=== PATIENT | female | born 1975 | race Caucasian/White ===

== ENCOUNTER 2017-03-17 00:40 | Emergency (ER) | payer BC ==
[~2017-03-17] VITALS: Ht 165.1 cm; Wt 64.0 kg
[~2017-03-17 00:40] MED LIST: MAGN84TA4; METH-480; TERB2.5T6
[2017-03-17 00:44] VITALS: Ht 165.1 cm; Wt 64.0 kg
[2017-03-17] MEDS ORDERED: KETOROLAC 30 MG INJ IM STA (01:01)
[2017-03-17] MEDS ORDERED: HYDR-906 PO (01:25)
[2017-03-17] MEDS ORDERED: AMOX500C2 PO (01:25)
--- NOTE | 2017-03-20 12:22 | ERD ---
ER Documentation Chief Complaint Chief Complaint Rt tooth pain x 2 days, some relief w/tylenol HPI Patient is a 42-year-old female presenting to the emergency department with complaints of right lower tooth pain near the molars. Pain is severe. She has had this for 1 day. Symptoms are worsening. She took Tylenol with only mild relief. No fevers, chills, or other symptoms reported currently. ROS All systems reviewed and are negative except as per history of present illness. Medications Home Meds Active Scripts Hydrocodone/Acetaminophen ([place] 5-325 Tablet) 1 Each Tablet, 1 TAB PO Q6H Y for PAIN, #10 TAB Prov:POP NICOLE PA-C 03/17/17 Amoxicillin* (Amoxicillin*) 500 Mg Cap, 500 MG PO TID for 7 Days, #21 CAP Prov:POP NICOLE PA-C 03/17/17 Reported Medications Terbutaline Sulfate (Brethine) 2.5 Mg Tablet 02/23/10 Magnesium (Mag-Tab Sr) 84 Mg Tablet.sa 02/23/10 Methyldopa* (Aldomet*) 500 Mg Tab 02/23/10 [None] No Conflict Check 11/18/09 Allergies Allergies: Coded Allergies: No Known Allergy (Verified , 03/17/17) PMhx/Soc History of Surgery: Yes (C SECTION) Anesthesia Reaction: No Hx Neurological Disorder: No Hx Respiratory Disorders: No Hx Cardiac Disorders: Yes (MITRAL VALVE PROLAPSE) Hx Psychiatric Problems: No Hx Miscellaneous Medical Probl: No Hx Alcohol Use: No Hx Substance Use: No Hx Tobacco Use: No Smoking Status: Never smoker Physical Exam Vitals Vital Signs Date Time Temp Pulse Resp B/P Pulse Ox O2 Delivery O2 Flow Rate FiO2 03/17/17 00:44 99.3 98 18 165/100 100 Physical Exam Const: Nontoxic, well-appearing female in no acute distress. Head: Atraumatic Eyes: Normal Conjunctiva ENT: Normal External Ears, Nose and Mouth. Poor dentition. Multiple dental caries. Broken tooth noted to the right lower molar. Surrounding gingivitis. Ext: No cyanosis, or edema Neur: Awake and alert Psych: Normal Mood and Affect Results 24 hrs Current Medications Medications (Trade) Dose Ordered Sig/Viral Route PRN Reason Start Time Stop Time Status Last Admin Dose Admin Ketorolac Tromethamine (Toradol) 30 mg ONCE STAT IM 03/17/17 01:01 03/17/17 01:03 DC 03/17/17 01:17 Procedures/MDM 42-year-old female presents to the emergency department for toothache. Patient is treated in the department with IM Toradol and she is feeling improved prior to discharge. She was stable with a prescription for amoxicillin as antibiotic prophylaxis. She is also given a prescription for pain medication. She was stable for discharge. No evidence of life-threatening pathology at time of discharge. Pt/family in agreement with discharge plan/diagnosis. Pt/family advised to return immediately with any new or worsening symptoms. Follow-up with primary care physician within the next 1-2 days. Disclaimer: Inadvertent spelling and grammatical errors are likely due to EHR/ dictation software use and do not reflect on the overall quality of patient care. Also, please note that the electronic time recorded on this note does not necessarily reflect the actual time of the patient encounter. Departure Diagnosis: Primary Impression: Toothache Condition: Fair Patient Instructions: Dental Pain Referrals: [facility] YOU HAVE RECEIVED A MEDICAL SCREENING EXAM AND THE RESULTS INDICATE THAT YOU DO NOT HAVE A CONDITION THAT REQUIRES URGENT TREATMENT IN THE EMERGENCY DEPARTMENT. FURTHER EVALUATION AND TREATMENT OF YOUR CONDITION CAN WAIT UNTIL YOU ARE SEEN IN YOUR DOCTORS OFFICE WITHIN THE NEXT 1-2 DAYS. IT IS YOUR RESPONSIBILITY TO MAKE AN APPOINTMENT FOR FOLOW-UP CARE. IF YOU HAVE A PRIMARY DOCTOR --you should call your primary doctor and schedule an appointment IF YOU DO NOT HAVE A PRIMARY DOCTOR YOU CAN CALL OUR PHYSICIAN REFERRAL HOTLINE AT IF YOU CAN NOT AFFORD TO SEE A PHYSICIAN YOU CAN CHOSE FROM THE FOLLOWING [facility] [address] [facility]. [facility] [address] [facility] [facility] [address] [facility]. [facility] [address] [facility] [address] [facility]. [facility]. [address] Additional Instructions: Call your primary care doctor TOMORROW for an appointment during the next 1-2 days.See the doctor sooner or return here if your condition worsens before your appointment time. POP NICOLE PA-C Mar 20, 2017 12:22
--- NOTE | 2017-03-20 12:22 | ERD ---
ER Documentation Chief Complaint Chief Complaint Rt tooth pain x 2 days, some relief w/tylenol HPI Patient is a 42-year-old female presenting to the emergency department with complaints of right lower tooth pain near the molars. Pain is severe. She has had this for 1 day. Symptoms are worsening. She took Tylenol with only mild relief. No fevers, chills, or other symptoms reported currently. ROS All systems reviewed and are negative except as per history of present illness. Medications Home Meds Active Scripts Hydrocodone/Acetaminophen ([place] 5-325 Tablet) 1 Each Tablet, 1 TAB PO Q6H Y for PAIN, #10 TAB Prov:POP NICOLE PA-C 03/17/17 Amoxicillin* (Amoxicillin*) 500 Mg Cap, 500 MG PO TID for 7 Days, #21 CAP Prov:POP NICOLE PA-C 03/17/17 Reported Medications Terbutaline Sulfate (Brethine) 2.5 Mg Tablet 02/23/10 Magnesium (Mag-Tab Sr) 84 Mg Tablet.sa 02/23/10 Methyldopa* (Aldomet*) 500 Mg Tab 02/23/10 [None] No Conflict Check 11/18/09 Allergies Allergies: Coded Allergies: No Known Allergy (Verified , 03/17/17) PMhx/Soc History of Surgery: Yes (C SECTION) Anesthesia Reaction: No Hx Neurological Disorder: No Hx Respiratory Disorders: No Hx Cardiac Disorders: Yes (MITRAL VALVE PROLAPSE) Hx Psychiatric Problems: No Hx Miscellaneous Medical Probl: No Hx Alcohol Use: No Hx Substance Use: No Hx Tobacco Use: No Smoking Status: Never smoker Physical Exam Vitals Vital Signs Date Time Temp Pulse Resp B/P Pulse Ox O2 Delivery O2 Flow Rate FiO2 03/17/17 00:44 99.3 98 18 165/100 100 Physical Exam Const: Nontoxic, well-appearing female in no acute distress. Head: Atraumatic Eyes: Normal Conjunctiva ENT: Normal External Ears, Nose and Mouth. Poor dentition. Multiple dental caries. Broken tooth noted to the right lower molar. Surrounding gingivitis. Ext: No cyanosis, or edema Neur: Awake and alert Psych: Normal Mood and Affect Results 24 hrs Current Medications Medications (Trade) Dose Ordered Sig/Viral Route PRN Reason Start Time Stop Time Status Last Admin Dose Admin Ketorolac Tromethamine (Toradol) 30 mg ONCE STAT IM 03/17/17 01:01 03/17/17 01:03 DC 03/17/17 01:17 Procedures/MDM 42-year-old female presents to the emergency department for toothache. Patient is treated in the department with IM Toradol and she is feeling improved prior to discharge. She was stable with a prescription for amoxicillin as antibiotic prophylaxis. She is also given a prescription for pain medication. She was stable for discharge. No evidence of life-threatening pathology at time of discharge. Pt/family in agreement with discharge plan/diagnosis. Pt/family advised to return immediately with any new or worsening symptoms. Follow-up with primary care physician within the next 1-2 days. Disclaimer: Inadvertent spelling and grammatical errors are likely due to EHR/ dictation software use and do not reflect on the overall quality of patient care. Also, please note that the electronic time recorded on this note does not necessarily reflect the actual time of the patient encounter. Departure Diagnosis: Primary Impression: Toothache Condition: Fair Patient Instructions: Dental Pain Referrals: [facility] YOU HAVE RECEIVED A MEDICAL SCREENING EXAM AND THE RESULTS INDICATE THAT YOU DO NOT HAVE A CONDITION THAT REQUIRES URGENT TREATMENT IN THE EMERGENCY DEPARTMENT. FURTHER EVALUATION AND TREATMENT OF YOUR CONDITION CAN WAIT UNTIL YOU ARE SEEN IN YOUR DOCTORS OFFICE WITHIN THE NEXT 1-2 DAYS. IT IS YOUR RESPONSIBILITY TO MAKE AN APPOINTMENT FOR FOLOW-UP CARE. IF YOU HAVE A PRIMARY DOCTOR --you should call your primary doctor and schedule an appointment IF YOU DO NOT HAVE A PRIMARY DOCTOR YOU CAN CALL OUR PHYSICIAN REFERRAL HOTLINE AT IF YOU CAN NOT AFFORD TO SEE A PHYSICIAN YOU CAN CHOSE FROM THE FOLLOWING [facility] [address] [facility]. [facility] [address] [facility] [facility] [address] [facility]. [facility] [address] [facility] [address] [facility]. [facility]. [address] Additional Instructions: Call your primary care doctor TOMORROW for an appointment during the next 1-2 days.See the doctor sooner or return here if your condition worsens before your appointment time. POP NICOLE PA-C Mar 20, 2017 12:22
--- NOTE | 2017-03-20 12:22 | ERD ---
ER Documentation Chief Complaint Chief Complaint Rt tooth pain x 2 days, some relief w/tylenol HPI Patient is a 42-year-old female presenting to the emergency department with complaints of right lower tooth pain near the molars. Pain is severe. She has had this for 1 day. Symptoms are worsening. She took Tylenol with only mild relief. No fevers, chills, or other symptoms reported currently. ROS All systems reviewed and are negative except as per history of present illness. Medications Home Meds Active Scripts Hydrocodone/Acetaminophen ([place] 5-325 Tablet) 1 Each Tablet, 1 TAB PO Q6H Y for PAIN, #10 TAB Prov:POP NICOLE PA-C 03/17/17 Amoxicillin* (Amoxicillin*) 500 Mg Cap, 500 MG PO TID for 7 Days, #21 CAP Prov:POP NICOLE PA-C 03/17/17 Reported Medications Terbutaline Sulfate (Brethine) 2.5 Mg Tablet 02/23/10 Magnesium (Mag-Tab Sr) 84 Mg Tablet.sa 02/23/10 Methyldopa* (Aldomet*) 500 Mg Tab 02/23/10 [None] No Conflict Check 11/18/09 Allergies Allergies: Coded Allergies: No Known Allergy (Verified , 03/17/17) PMhx/Soc History of Surgery: Yes (C SECTION) Anesthesia Reaction: No Hx Neurological Disorder: No Hx Respiratory Disorders: No Hx Cardiac Disorders: Yes (MITRAL VALVE PROLAPSE) Hx Psychiatric Problems: No Hx Miscellaneous Medical Probl: No Hx Alcohol Use: No Hx Substance Use: No Hx Tobacco Use: No Smoking Status: Never smoker Physical Exam Vitals Vital Signs Date Time Temp Pulse Resp B/P Pulse Ox O2 Delivery O2 Flow Rate FiO2 03/17/17 00:44 99.3 98 18 165/100 100 Physical Exam Const: Nontoxic, well-appearing female in no acute distress. Head: Atraumatic Eyes: Normal Conjunctiva ENT: Normal External Ears, Nose and Mouth. Poor dentition. Multiple dental caries. Broken tooth noted to the right lower molar. Surrounding gingivitis. Ext: No cyanosis, or edema Neur: Awake and alert Psych: Normal Mood and Affect Results 24 hrs Current Medications Medications (Trade) Dose Ordered Sig/Viral Route PRN Reason Start Time Stop Time Status Last Admin Dose Admin Ketorolac Tromethamine (Toradol) 30 mg ONCE STAT IM 03/17/17 01:01 03/17/17 01:03 DC 03/17/17 01:17 Procedures/MDM 42-year-old female presents to the emergency department for toothache. Patient is treated in the department with IM Toradol and she is feeling improved prior to discharge. She was stable with a prescription for amoxicillin as antibiotic prophylaxis. She is also given a prescription for pain medication. She was stable for discharge. No evidence of life-threatening pathology at time of discharge. Pt/family in agreement with discharge plan/diagnosis. Pt/family advised to return immediately with any new or worsening symptoms. Follow-up with primary care physician within the next 1-2 days. Disclaimer: Inadvertent spelling and grammatical errors are likely due to EHR/ dictation software use and do not reflect on the overall quality of patient care. Also, please note that the electronic time recorded on this note does not necessarily reflect the actual time of the patient encounter. Departure Diagnosis: Primary Impression: Toothache Condition: Fair Patient Instructions: Dental Pain Referrals: [facility] YOU HAVE RECEIVED A MEDICAL SCREENING EXAM AND THE RESULTS INDICATE THAT YOU DO NOT HAVE A CONDITION THAT REQUIRES URGENT TREATMENT IN THE EMERGENCY DEPARTMENT. FURTHER EVALUATION AND TREATMENT OF YOUR CONDITION CAN WAIT UNTIL YOU ARE SEEN IN YOUR DOCTORS OFFICE WITHIN THE NEXT 1-2 DAYS. IT IS YOUR RESPONSIBILITY TO MAKE AN APPOINTMENT FOR FOLOW-UP CARE. IF YOU HAVE A PRIMARY DOCTOR --you should call your primary doctor and schedule an appointment IF YOU DO NOT HAVE A PRIMARY DOCTOR YOU CAN CALL OUR PHYSICIAN REFERRAL HOTLINE AT IF YOU CAN NOT AFFORD TO SEE A PHYSICIAN YOU CAN CHOSE FROM THE FOLLOWING [facility] [address] [facility]. [facility] [address] [facility] [email or web address] [address] [facility]. [facility] [address] [facility] [address] [facility]. [facility]. [address] Additional Instructions: Call your primary care doctor TOMORROW for an appointment during the next 1-2 days.See the doctor sooner or return here if your condition worsens before your appointment time. POP NICOLE PA-C Mar 20, 2017 12:22
== END 2017-03-17 01:32 | disposition home or self-care (01) ==
LOC: FTE 00:40
DX: K08.89 Other specified disorders of teeth and supporting structures (principal)
CPT/HCPCS: 96372; 99284; J1885